=== PATIENT | female | born 1940 | race African-American/Black ===

== ENCOUNTER 2016-09-03 07:06 | Day surgery (SDC) | payer OTHER, BC ==
[2016-09-03 07:46] VITALS: BMI 29.2
[2016-09-03] MEDS ORDERED: LIDOCAINE HCL/PF 2% SDV 5ML VIAL ONE (07:55)
[2016-09-03] MEDS ORDERED: SUCCINYLCHOLINE CHLORIDE 200 MG/10 ML VIAL ONE (07:55)
[2016-09-03] MEDS ORDERED: PROPOFOL 20 ML ONE ×2 (07:55)
[2016-09-03] MEDS ORDERED: PHENYLEPHRINE HCL 10 MG/1 ML SINGLE DOSE VIAL ONE (07:56)
[2016-09-03] MEDS ORDERED: ePHEDrine SULFATE 50 MG/1 ML AMPULE ONE (07:56)
[2016-09-03 08:46] VITALS: TEMP 97.6
[2016-09-03 10:03] VITALS: BP 132/75; PULSE 57
--- NOTE | 2016-09-04 14:54 | PATH ---
Surgical Pathology Report Patient Name: DANIEL LIM [facility]. Rec. #: [id number] /Age/Gender: 1940 (Age: 76) / F Account: [id number] Location: [facility]-ENDOSCOPY Taken: 09/03/2016 Received: 09/03/2016 Reported: 09/04/2016 Physicians: Katherine Bobo M.D. Specimen(s) Received A: BX 2ND PORTION DUODENUM/BULB B: BX ANTRUM C: BX SCHATZKI'S RING D: BX MID ESOPHAGUS Clinical History Dysphagia, Schatzki's ring Hiatal hernia, GERD, Schatzki's ring Final Diagnosis A. DUODENUM, SECOND PORTION AND BULB, BIOPSY: DUODENAL MUCOSA WITH NO PATHOLOGIC CHANGES. NO HISTOLOGIC EVIDENCE OF GLUTEN SENSITIVE ENTEROPATHY (CELIAC SPRUE) IDENTIFIED. B. STOMACH, ANTRUM, BIOPSY: MILD CHRONIC GASTRITIS AND REACTIVE GASTROPATHY. IMMUNOSTAIN FOR H. PYLORI IS NEGATIVE. C. ESOPHAGUS, SCHATZKI'S RING, BIOPSY: SQUAMOUS EPITHELIUM WITH PAPILLOMATOSIS SUGGESTIVE OF REFLUX ESOPHAGITIS. NO INTESTINAL METAPLASIA IDENTIFIED (NO SIMON'S IDENTIFIED). D. MID ESOPHAGUS, BIOPSY: SQUAMOUS EPITHELIUM WITH PAPILLOMATOSIS SUGGESTIVE OF REFLUX ESOPHAGITIS. NO EOSINOPHILIC ESOPHAGITIS IDENTIFIED. Electronically Signed Vladimir Lewis M.D. Gross Description A. Received in formalin, labeled "biopsy second portion of duodenum/bulb" are 4 gonzalez, irregular portions of soft tissue ranging from 0.1-0.5 cm. in greatest dimension. The specimens are submitted in toto in one cassette. B. Received in formalin, labeled "biopsy antrum" are 3 gonzalez, irregular portions of soft tissue ranging from 0.3-0.6 cm. in greatest dimension. The specimens are submitted in toto in one cassette. C. Received in formalin, labeled "biopsy Schatzki's ring" are 5 gonzalez, irregular portions of soft tissue ranging from 0.3-0.4 cm. in greatest dimension. The specimens are submitted in toto in one cassette. D. Received in formalin, labeled "biopsy midesophagus" are 2 gonzalez, irregular portions of soft tissue measuring 0.5 and 0.6 cm. in greatest dimension. The specimens are submitted in toto in one cassette. 09/03/201609/03/2016
== END 2016-09-03 10:03 | disposition home or self-care (01) ==
LOC: JASU-ENDO 07:06
PROVIDERS: ATTEND Internal Medicine Gastroenterology
PROC: 0DB28ZX Excision of Middle Esophagus, Via Natural or Artificial Opening Endoscopic, Diagnostic (ICD-10-PCS; 2016-09-03)
PROC: 0D758ZZ Dilation of Esophagus, Via Natural or Artificial Opening Endoscopic (ICD-10-PCS; 2016-09-03)
PROC: 0DB38ZX Excision of Lower Esophagus, Via Natural or Artificial Opening Endoscopic, Diagnostic (ICD-10-PCS; principal; 2016-09-03 08:00)
DX: K22.2 Esophageal obstruction (principal); K44.9 Diaphragmatic hernia without obstruction or gangrene; K21.9 Gastro-esophageal reflux disease without esophagitis
CPT/HCPCS: 88305-TC; 88342-TC

== ENCOUNTER 2016-11-20 06:25 | Day surgery (SDC) | payer OTHER, BC ==
[2016-11-05 09:59] VITALS: BMI 28.1
[2016-11-20] MEDS ORDERED: LIDOCAINE HCL/PF 2% SDV 5ML VIAL ONE (07:35)
[2016-11-20] MEDS ORDERED: LEVOFLOXACIN 500 MG IVPB 100 ML IVPB ONE (07:35)
[2016-11-20] MEDS ORDERED: MIDAZOLAM HCL 2 MG/2 ML SINGLE DOSE VIAL ONE (07:36)
[2016-11-20] MEDS ORDERED: PROPOFOL 20 ML ONE (07:36)
[2016-11-20] MEDS ORDERED: LEVOFLOXACIN 500 MG PREMIX BAG IVPB ONE (07:50)
[2016-11-20] MEDS ORDERED: ACETAMINOPHEN 325 MG TABLET (FP) PO PRN (08:14)
[2016-11-20] MEDS ORDERED: oxyCODONE HCL 5 MG TABLET PO PRN ×2 (08:14→08:23)
[2016-11-20] MEDS ORDERED: ONDANSETRON 4 MG/2 ML VIAL IVPUSH PRN (08:14)
[2016-11-20] MEDS ORDERED: LACTATED RINGERS SOLUTION 1,000 ML IV SCH (08:15)
[2016-11-20] MEDS ORDERED: ACETAMINOPHEN 1000 MG/100 ML VIAL (NON FORMULARY) IVPB ONE (08:17)
--- NOTE | 2016-11-20 08:25 | OP ---
Operative Note - Note: Operative Date: 11/20/16 Pre-Operative Diagnosis: left kidney stone Operation: cysto/left ureteroscopy/laser litho/stent Findings: 1cm left kidney stone Post-Operative Diagnosis: Same as Pre-op Surgeon: Glenn Vela Anesthesia: General Estimated Blood Loss (mls): 0 Operative Report Dictated: Yes
[2016-11-20] MEDS ORDERED: ELECTROLYTE-148 SOLN 1,000 ML IV SCH (08:30)
[2016-11-20] MEDS ORDERED: ACETAMINOPHEN INJECTION 100 ML IVPB ONE (08:51)
[2016-11-20 09:41] VITALS: TEMP 97.7
[2016-11-20 12:15] VITALS: BP 131/71; PULSE 52
--- NOTE | 2016-11-20 17:09 | OP ---
DATE OF OPERATION: 11/20/2016 PREOPERATIVE DIAGNOSIS: A 1-cm left kidney stone. POSTOPERATIVE DIAGNOSIS: A 1-cm left kidney stone. PROCEDURE: Cystoscopy, ureteroscopy, laser lithotripsy, stone basket, and stent placement. SURGEON: Mary Lou Roberto MD INDICATION: Patient is a 76-year-old female who underwent ESWL for a 1-cm left kidney stone. However, the stone did not fragment, and so, she was taken to the OR for ureteroscopy and laser lithotripsy. Risks, benefits, and alternatives discussed, and the patient consented to the procedure. DESCRIPTION OF PROCEDURE: After informed consent was obtained, patient was taken to the OR, placed supine on the OR table. Cardiac monitoring administered. General anesthesia established. She was prepped and draped in the dorsal lithotomy position. She was given 500 mg of Levaquin preoperatively IV. At this point, the cystoscope was inserted into the urethra and into the bladder without difficulty. No tumors or stones were noted in the bladder. Attention was turned to the left ureteral orifice, intubated with ureteral catheter. Contrast injected for retrograde pyelogram. There was a 1-cm filling defect in the left kidney consistent with stone. The stone was radiolucent. Guidewire was advanced into the left renal pelvis. Over the guidewire, a dual-lumen catheter was advanced, and a second guidewire was advanced to the left renal pelvis. Over the second guidewire, a flexible ureteroscope was advanced into the kidney, and remaining guidewire was kept as a safety wire. The stone was seen in the renal pelvis. Using the -degree micron laser fiber, the stone was pulverized to fine dust in 1-2 mm fragments. One of these fragments was then removed with stone basket and sent to Pathology for analysis. Repeat ureteroscopy revealed no evidence of any large stone fragments and no evidence of any ureteral stone fragments. Ureteroscope was then removed, and a 7-Kinyarwanda 24-cm double-pigtail stent was then advanced in fashion. Fluoroscopy confirmed the stent to be in good position. Patient then awoke from anesthesia and transferred to recovery room in stable condition. There were no complications. Estimated blood loss was minimal. MARY LOU ROBERTO M.D. [id number]
--- NOTE | 2016-11-21 12:58 | PATH ---
Surgical Pathology Report Patient Name: DANIEL LIM [facility]. Rec. #: [id number] /Age/Gender: 1940 (Age: 76) / F Account: [id number] Location: [facility] SURGICAL Taken: 11/19/2016 Received: 11/20/2016 Reported: 11/21/2016 Physicians: Glenn Vela M.D. Specimen(s) Received LEFT KIDNEY STONE Clinical History Left kidney stone Final Diagnosis LEFT KIDNEY STONE, EXTRACTION: CALCULI SUBMITTED FOR CHEMICAL ANALYSIS (gross only). Electronically Signed Vladimir Lewis M.D. Gross Description Received fresh labeled "left kidney stone," is a 0.1 cm in greatest dimension gonzalez, irregular calculus which is sent for chemical analysis. DL/11/20/2016 saudi/11/20/2016
== END 2016-11-20 12:16 | disposition home or self-care (01) ==
LOC: JASU-SURG 06:25
PROVIDERS: ATTEND Urology
PROC: 0TF48ZZ Fragmentation in Left Kidney Pelvis, Via Natural or Artificial Opening Endoscopic (ICD-10-PCS; principal; 2016-11-20 07:30)
PROC: 0T778DZ Dilation of Left Ureter with Intraluminal Device, Via Natural or Artificial Opening Endoscopic (ICD-10-PCS; 2016-11-20 07:30)
DX: N20.0 Calculus of kidney (principal)
CPT/HCPCS: 76000-TC; 88300-TC; 94760

== ENCOUNTER 2016-11-30 16:32 | Inpatient (IN) | payer OTHER, BC ==
[2016-11-30] MEDS ORDERED: SODIUM CHLORIDE 0.9% 1000 ML INFUS.BAG IV STA (17:01)
[2016-11-30] MEDS ORDERED: ACETAMINOPHEN 500 MG TABLET (FP) PO ONE (17:24)
[2016-11-30 17:40] LABS: VENOUS BLOOD GAS HCO3 24.1 meq/L (19-25); VENOUS PH 7.48 (7.32-7.42)
[2016-11-30 17:43] LABS: BASOPHIL 0.1 % (0-2.0); EOSINOPHIL 0.1 % (0-4.5); MCH 31.6 pg (25.7-33.7); MCHC 33.3 g/dl (32.0-36.0); MEAN CELL VOLUME 94.9 fl (80-96); MEAN PLT VOLUME 8.2 fl (7.5-11.1); NEUTROPHILS 86.4 % (42.8-82.8); PLATELET COUNT 125 K/MM3 (134-434); RDW 14.3 % (11.6-15.6); WHITE BLOOD COUNT 13.3 K/mm3 (4.0-10.0)
[2016-11-30 17:45] LABS: URINE APPEARANCE CLOUDY; URINE BILIRUBIN NEGATIVE (NEGATIVE); URINE BLOOD 2+ (NEGATIVE); URINE COLOR YELLOW; URINE GLUCOSE (UA) NEGATIVE (NEGATIVE); URINE KETONE TRACE (NEGATIVE); URINE NITRITE NEGATIVE (NEGATIVE); URINE UROBILINOGEN NEGATIVE mg/dL (0.2-1.0)
--- NOTE | 2016-11-30 17:45 | PDOC ---
History of Present Illness <GracieJamar - Last Filed: 11/30/16 17:45> - General History Source: Patient Exam Limitations: No Limitations - History of Present Illness Initial Comments: 11/30/16 17:45 The patient is a 76 year old female with a significant past medical history of heart disease on lasix, CHF, acid reflux, kidney disease, glaucoma, who is sent in to the ED by Dr. Vela for ab ct. She complains of fevers and chills for [address] Vela on Thursday and was given Levofloxacin 500mg but with no alleviation. Patient states she had a stent removed on November 27 and has been sick since. Patient denies chest pain, SOB, chills, nausea, vomiting, diarrhea. Patient denies dysuria, frequency, hematuria. Patient is a current smoker. Patient denies drinking alcohol. Patient denies drug usage. <Олег Saunders - Last Filed: 11/30/16 18:08> <Ness Trent - Last Filed: 11/30/16 20:03> <Lakesha Garland - Last Filed: 12/01/16 05:27> - General Chief Complaint: SIRS, Suspected/Possible Stated Complaint: SENT BY PCP Time Seen by Provider: 11/30/16 16:51 Past History - Past Medical History Anemia: No Asthma: Yes Cancer: No Cardiac Disorders: Yes (CARDIAC CATH-NO STENT) CVA: No COPD: No CHF: No Dementia: No Diabetes: No GI Disorders: Yes (ACID REFLUX, H.PYLORI GASTRITIS, HIATAL HERNIA, SCHATZKI RING ) Disorders: Yes (KIDNEY STONES) HTN: Yes Hypercholesterolemia: No Liver Disease: No Seizures: No Thyroid Disease: No - Surgical History Abdominal Surgery: No Appendectomy: No Cardiac Surgery: No Cholecystectomy: No Lung Surgery: No Neurologic Surgery: No Orthopedic Surgery: Yes (ROTATOR CUFF SX LEFT) - Immunization History Immunization Up to Date: No - Psycho/Social/Smoking Cessation Hx Anxiety: No Suicidal Ideation: No Smoking Status: Yes Smoking History: Never smoked Have you smoked in the past 12 months: Yes Number of Cigarettes Smoked Daily: 0 If you are a former smoker, when did you quit?: 2015 'Breaking Loose' booklet given: 01/14/16 Hx Alcohol Use: Yes (SOCIAL) Drug/Substance Use Hx: No Substance Use Type: None Hx Substance Use Treatment: No <Jamar Bowman - Last Filed: 11/30/16 17:45> <Олег Saunders - Last Filed: 11/30/16 18:08> <Ness Trent - Last Filed: 11/30/16 20:03> <Lakesha Garland - Last Filed: 12/01/16 05:27> - Past Medical History Allergies/Adverse Reactions: Allergies Allergy/AdvReac Type Severity Reaction Status Date / Time Penicillins Allergy Mild Hives Verified 11/30/16 16:43 PLASTICS Allergy Mild Swelling Uncoded 11/30/16 16:43 Home Medications: Ambulatory Orders Albuterol Sulfate [Proair Hfa -] 1 - 2 inh PO PRN PRN 01/20/14 Amlodipine Besylate [Norvasc -] 2.5 mg PO DAILY 01/20/14 Hydrochlorothiazide [Hctz -] 12.5 mg PO DAILY 01/20/14 Omeprazole [Prilosec] 20 mg PO PRN PRN 01/20/14 Naproxen Sodium [Aleve] 220 mg PO PRN PRN 09/03/16 Vitamin B Complex 1 each PO DAILY 09/03/16 Acetaminophen [Tylenol -] 1,000 mg PO Q6H 11/05/16 Cholecalciferol (Vitamin D3) [Vitamin D3] 50,000 unit PO WEEKLY 11/05/16 Levofloxacin 750 mg PO DAILY 11/30/16 Review of Systems - Review of Systems Able to Perform ROS?: Yes Comments:: 11/30/16 17:46 GENERAL/CONSTITUTIONAL: + fever + chills. No weakness. HEAD, EYES, EARS, NOSE AND THROAT: No change in vision. No ear pain or discharge. No sore throat. CARDIOVASCULAR: No chest pain or shortness of breath. RESPIRATORY: No cough, wheezing, or hemoptysis. GASTROINTESTINAL: No nausea, vomiting, diarrhea or constipation. GENITOURINARY: No dysuria, frequency, or change in urination. MUSCULOSKELETAL: No joint or muscle swelling or pain. No neck or back pain. SKIN: No rash NEUROLOGIC: No headache, vertigo, loss of consciousness, or change in strength/ sensation. ENDOCRINE: No increased thirst. No abnormal weight change. HEMATOLOGIC/LYMPHATIC: No anemia, easy bleeding, or history of blood clots. ALLERGIC/IMMUNOLOGIC: No hives or skin allergy. <Олег Saunders - Last Filed: 11/30/16 18:08> *Physical Exam - Vital Signs Last Vital Signs Temp Pulse Resp BP Pulse Ox 102.3 F H 107 H 20 133/76 96 11/30/16 16:38 11/30/16 16:38 11/30/16 16:38 11/30/16 16:38 11/30/16 16:38 <Jamar Bowman - Last Filed: 11/30/16 17:45> - Vital Signs Last Vital Signs Temp Pulse Resp BP Pulse Ox 102.3 F H 107 H 20 133/76 96 11/30/16 16:38 11/30/16 16:38 11/30/16 16:38 11/30/16 16:38 11/30/16 16:38 - Physical Exam Comments: 11/30/16 17:46 GENERAL: Awake, alert, and fully oriented, in no acute distress HEAD: No signs of trauma EYES: PERRLA, EOMI, sclera anicteric, conjunctiva clear ENT: Auricles normal inspection, hearing grossly normal, nares patent, oropharynx clear without exudates. Moist mucosa NECK: Normal ROM, supple, no lymphadenopathy, JVD, or masses LUNGS: Breath sounds equal, clear to auscultation bilaterally. No wheezes, and no crackles HEART: Regular rate and rhythm, normal S1 and S2, no murmurs, rubs or gallops ABDOMEN: Soft, nontender, normoactive bowel sounds. No guarding, no rebound. No masses EXTREMITIES: Normal range of motion, no edema. No clubbing or cyanosis. No cords, erythema, or tenderness NEUROLOGICAL: Cranial nerves II through XII grossly intact. Normal speech, normal gait SKIN: Warm, Dry, normal turgor, no rashes or lesions noted. <Олег Saunders - Last Filed: 11/30/16 18:08> - Vital Signs Last Vital Signs Temp Pulse Resp BP Pulse Ox 99.6 F 68 16 132/76 98 11/30/16 19:05 11/30/16 19:05 11/30/16 19:05 11/30/16 19:05 11/30/16 19:05 <Ness Trent - Last Filed: 11/30/16 20:03> - Vital Signs Last Vital Signs Temp Pulse Resp BP Pulse Ox 99.6 F 68 16 132/76 98 11/30/16 19:05 11/30/16 19:05 11/30/16 19:05 11/30/16 19:05 11/30/16 19:05 <GarlandLakesha - Last Filed: 12/01/16 05:27> Heart Score/ECG Review - ECG Intrepretation Comment:: 11/30/16 18:08 normal sinus rhythm, [address] and T wave abnormality. Abnormal ECG. <Олег Saunders - Last Filed: 11/30/16 18:08> ED Treatment Course - LABORATORY CBC & Chemistry Diagram: 11/30/16 17:02 11/30/16 17:02 - ADDITIONAL ORDERS Additional order review: Laboratory Results 11/30/16 17:35 VBG pH 7.48 H POC VBG pCO2 33.0 L POC VBG pO2 61.5 H Mixed VBG HCO3 24.1 - RADIOLOGY Radiology Studies Ordered: Category Date Time Status ABDOMEN & PELVIS CT W/O CONTR [CT] Stat CT Scan 11/30/16 17:32 Ordered CHEST X-RAY PORTABLE* [RAD] Stat Radiology 11/30/16 17:01 Ordered - Medications Given in the ED: ED Medications Discontinued Medications Generic Name Dose Route Start Last Admin Trade Name Freq PRN Reason Stop Dose Admin Acetaminophen 1,000 mg 11/30/16 17:24 11/30/16 17:44 Tylenol - PO 11/30/16 17:25 1,000 mg ONCE ONE Administration Sodium Chloride 1,379 ml 11/30/16 17:01 11/30/16 17:44 Normal Saline - IV 11/30/16 17:02 1,379 ml ONCE STA Administration <Gabrin,Jamar - Last Filed: 11/30/16 17:45> - LABORATORY CBC & Chemistry Diagram: 11/30/16 17:02 11/30/16 17:02 - ADDITIONAL ORDERS Additional order review: Laboratory Results 11/30/16 17:35 VBG pH 7.48 H POC VBG pCO2 33.0 L POC VBG pO2 61.5 H Mixed VBG HCO3 24.1 - Medications Given in the ED: ED Medications Discontinued Medications Generic Name Dose Route Start Last Admin Trade Name Freq PRN Reason Stop Dose Admin Acetaminophen 1,000 mg 11/30/16 17:24 11/30/16 17:44 Tylenol - PO 11/30/16 17:25 1,000 mg ONCE ONE Administration Sodium Chloride 1,379 ml 11/30/16 17:01 11/30/16 17:44 Normal Saline - IV 11/30/16 17:02 1,379 ml ONCE STA Administration <Олег Saunders - Last Filed: 11/30/16 18:08> - LABORATORY CBC & Chemistry Diagram: 11/30/16 17:02 11/30/16 17:02 - ADDITIONAL ORDERS Additional order review: Laboratory Results 11/30/16 11/30/16 11/30/16 17:35 17:02 17:02 INR PTT (Actin FS) VBG pH 7.48 H POC VBG pCO2 33.0 L POC VBG pO2 61.5 H Mixed VBG HCO3 24.1 Sodium Potassium Chloride Carbon Dioxide Anion Gap BUN Creatinine Creat Clearance w eGFR Random Glucose Lactic Acid 1.2 Calcium Total Bilirubin AST ALT Alkaline Phosphatase Creatine Kinase Troponin I Total Protein Albumin Urine Color Urine Appearance Urine pH Urine Protein Urine Glucose (UA) Urine Ketones Urine Blood Urine Nitrite Urine Bilirubin Urine Urobilinogen Ur Leukocyte Esterase Urine RBC Urine WBC Ur Epithelial Cells Urine Bacteria Granular Casts Urine Mucus Blood Type A POSITIVE Antibody Screen Negative 11/30/16 11/30/16 11/30/16 17:02 17:02 17:02 INR 1.53 H D PTT (Actin FS) 28.4 VBG pH POC VBG pCO2 POC VBG pO2 Mixed VBG HCO3 Sodium 137 Potassium 3.5 D Chloride 102 Carbon Dioxide 24 Anion Gap 11 BUN 15 Creatinine 1.1 H D Creat Clearance w eGFR 48.29 Random Glucose 115 H D Lactic Acid Calcium 8.4 L Total Bilirubin 0.9 D AST 26 D ALT 20 Alkaline Phosphatase 86 Creatine Kinase 85 Troponin I < 0.02 Total Protein 7.1 Albumin 2.7 L Urine Color Yellow Urine Appearance Cloudy Urine pH 5.0 Urine Protein 2+ H Urine Glucose (UA) Negative Urine Ketones Trace H Urine Blood 2+ H Urine Nitrite Negative Urine Bilirubin Negative Urine Urobilinogen Negative Ur Leukocyte Esterase 3+ H Urine RBC 7 Urine WBC 328 Ur Epithelial Cells Rare Urine Bacteria Many Granular Casts 14 Urine Mucus Rare Blood Type Antibody Screen 11/30/16 17:02 RBC 3.65 MCV 94.9 MCHC 33.3 RDW 14.3 MPV 8.2 D Neutrophils % 86.4 H D Lymphocytes % 4.1 L D Monocytes % 9.3 Eosinophils % 0.1 D Basophils % 0.1 - RADIOLOGY Radiograph Interpretation: IMPRESSION: Collection of nonobstructing stones within the lower pole of the left kidney. Perinephric soft tissue stranding suggesting left pyelonephritis. Diffuse colonic diverticulosis with early focal diverticulitis of the splenic flexure suspected if appropriate clinically. - Medications Given in the ED: ED Medications Discontinued Medications Generic Name Dose Route Start Last Admin Trade Name Peterq PRN Reason Stop Dose Admin Acetaminophen 1,000 mg 11/30/16 17:24 11/30/16 17:44 Tylenol - PO 11/30/16 17:25 1,000 mg ONCE ONE Administration Sodium Chloride 1,379 ml 11/30/16 17:01 11/30/16 17:44 Normal Saline - IV 11/30/16 17:02 1,379 ml ONCE STA Administration <Ness Trent - Last Filed: 11/30/16 20:03> - LABORATORY CBC & Chemistry Diagram: 11/30/16 17:02 11/30/16 17:02 - ADDITIONAL ORDERS Additional order review: Laboratory Results 11/30/16 11/30/16 11/30/16 17:35 17:02 17:02 INR PTT (Actin FS) VBG pH 7.48 H POC VBG pCO2 33.0 L POC VBG pO2 61.5 H Mixed VBG HCO3 24.1 Sodium Potassium Chloride Carbon Dioxide Anion Gap BUN Creatinine Creat Clearance w eGFR Random Glucose Lactic Acid 1.2 Calcium Total Bilirubin AST ALT Alkaline Phosphatase Creatine Kinase Troponin I Total Protein Albumin Urine Color Urine Appearance Urine pH Urine Protein Urine Glucose (UA) Urine Ketones Urine Blood Urine Nitrite Urine Bilirubin Urine Urobilinogen Ur Leukocyte Esterase Urine RBC Urine WBC Ur Epithelial Cells Urine Bacteria Granular Casts Urine Mucus Blood Type A POSITIVE Antibody Screen Negative 11/30/16 11/30/16 11/30/16 17:02 17:02 17:02 INR 1.53 H D PTT (Actin FS) 28.4 VBG pH POC VBG pCO2 POC VBG pO2 Mixed VBG HCO3 Sodium 137 Potassium 3.5 D Chloride 102 Carbon Dioxide 24 Anion Gap 11 BUN 15 Creatinine 1.1 H D Creat Clearance w eGFR 48.29 Random Glucose 115 H D Lactic Acid Calcium 8.4 L Total Bilirubin 0.9 D AST 26 D ALT 20 Alkaline Phosphatase 86 Creatine Kinase 85 Troponin I < 0.02 Total Protein 7.1 Albumin 2.7 L Urine Color Yellow Urine Appearance Cloudy Urine pH 5.0 Urine Protein 2+ H Urine Glucose (UA) Negative Urine Ketones Trace H Urine Blood 2+ H Urine Nitrite Negative Urine Bilirubin Negative Urine Urobilinogen Negative Ur Leukocyte Esterase 3+ H Urine RBC 7 Urine WBC 328 Ur Epithelial Cells Rare Urine Bacteria Many Granular Casts 14 Urine Mucus Rare Blood Type Antibody Screen 11/30/16 17:02 RBC 3.65 MCV 94.9 MCHC 33.3 RDW 14.3 MPV 8.2 D Neutrophils % 86.4 H D Lymphocytes % 4.1 L D Monocytes % 9.3 Eosinophils % 0.1 D Basophils % 0.1 - Medications Given in the ED: ED Medications Discontinued Medications Generic Name Dose Route Start Last Admin Trade Name Freq PRN Reason Stop Dose Admin Acetaminophen 1,000 mg 11/30/16 17:24 11/30/16 17:44 Tylenol - PO 11/30/16 17:25 1,000 mg ONCE ONE Administration Sodium Chloride 1,379 ml 11/30/16 17:01 11/30/16 17:44 Normal Saline - IV 11/30/16 17:02 1,379 ml ONCE STA Administration <Lakesha Garland - Last Filed: 12/01/16 05:27> Medical Decision Making - Medical Decision Making Paged Dr. Baeza @ 19:45. Awaiting call back. Paged Dr. Baeza a second time @ 20:04. Awaiting call back. <Ness Trent - Last Filed: 11/30/16 20:03> - Medical Decision Making 11/30/16 19:30 Patient Name: Mahi Leavitt THIS IS A PRELIMINARY REPORT FROM [facility] DATE OF SERVICE: 2016-11-30 18:14:37.0 IMAGES: [id number] EXAM: CT ABDOMEN AND PELVIS WITHOUT CONTRAST REASON FOR EXAM: Abdominal pain lithotripsy last week COMPARISON: None FINDINGS: Lower lung gibson are clear. There are no gallstones identified. Liver, pancreas, spleen and adrenal glands are grossly unremarkable given the limitation of this non contrast exam. Perinephric soft tissue stranding surrounds the left kidney. Additionally, there is soft tissue stranding that extends to the splenic flexure where diffuse diverticula present. Superimposed early diverticulitis within this area cannot be excluded. There is a nonobstructing collection of stones in the lower pole of the left kidney measuring 13 x 6 x 10 mm. Mild left hydroureter without obstructing ureteral stone. Left kidney is unremarkable. Abdominal aorta without AAA. There is no retroperitoneal hemorrhage The appendix is normal. Evaluation of the GI tract is limited without oral contrast. Diffuse colonic diverticulosis. No evidence of bowel obstruction, ascites, abscess, free air Bladder unremarkable without stones. Lumbar spine and bony pelvis are intact. IMPRESSION: Collection of nonobstructing stones within the lower pole of the left kidney. Perinephric soft tissue stranding suggesting left pyelonephritis. Diffuse colonic diverticulosis with early focal diverticulitis of the splenic flexure suspected if appropriate clinically. . THIS DOCUMENT HAS BEEN ELECTRONICALLY SIGNED 12/01/16 05:25 Pt has UTI; possible pyelonephritis; she failed outpatient levaquin. Pt will be admitted to her PMD [facility]. Dr Baeza is aware of the patient. <Lakesha Garland - Last Filed: 12/01/16 05:27> *DC/Admit/Observation/Transfer - Attestations Physician Attestion: 11/30/16 17:45 I, Dr. Jamar Bowman, attest that this document has been prepared under my direction and personally reviewed by me in its entirety. I further attest, that it accurately reflects all work, treatment, procedures and medical decision -making performed by me. <Jamar Bowman - Last Filed: 11/30/16 17:45> - Attestations Scribe Attestion: 11/30/16 17:47 Documentation prepared by Олег Saunders, acting as medical auditor for Jamar Bowman MD/. <Олег Saunders - Last Filed: 11/30/16 18:08> <Ness Trent - Last Filed: 11/30/16 20:03> - Discharge Dispostion Admit: Yes <Lakesha Garland - Last Filed: 12/01/16 05:27> Diagnosis at time of Disposition: Sepsis - Referrals
[2016-11-30] MEDS ORDERED: ACETAMINOPHEN 325 MG TABLET (FP) ONE (17:46)
[2016-11-30 17:47] LABS: URINE LEUK ESTERASE 3+ (NEGATIVE); URINE PROTEIN 2+ (NEGATIVE)
[2016-11-30 17:49] LABS: GRANULAR CASTS 14 /lpf; URINE BACTERIA MANY /hpf (NONE SEEN); URINE MUCUS RARE; URINE RBC 7 /hpf (0-3); URINE WBC 328 /hpf (3-5)
[2016-11-30 17:56] LABS: INR 1.53 (0.82-1.09)
[2016-11-30 17:59] LABS: ACTIVATED PTT 28.4 SECONDS (26.9-34.4)
[2016-11-30 18:13] LABS: ALBUMIN 2.7 g/dl (3.4-5.0); ANION GAP 11 (8-16); BILIRUBIN,TOTAL 0.9 mg/dL (0.2-1.0); CALCIUM 8.4 mg/dL (8.5-10.1); CO2 24 mmol/L (21-32); CREATININE 1.1 mg/dL (0.55-1.02); GLUCOSE,RANDOM 115 mg/dL (74-106); SGOT/AST 26 U/L (15-37); TOT PROT 7.1 g/dl (6.4-8.2)
[2016-11-30 18:20] LABS: ALK PHOS 86 U/L (45-117); CPK 85 IU/L (26-192); SGPT/ALT 20 U/L (12-78); TROPONIN I < 0.02 ng/ml (0.00-0.05)
[2016-11-30] MEDS ORDERED: MEROPENEM 1 MG in DEXTROSE 5%-WATER - 100 ML IVPB ONE (18:57)
[2016-11-30] MEDS ORDERED: IMIPENEM/CILASTATIN SODIUM 500 MG in SODIUM CHLORIDE 100 ML IVPB SCH (20:15)
[2016-11-30] MEDS: MEROPENEM 1 GM in DEXTROSE 5%-WATER - 100 ML IVPB SCH (20:31)
[2016-11-30 23:54] VITALS: BMI 27.8
[2016-12-01] MEDS: ACETAMINOPHEN 325 MG TABLET (FP) PO PRN ×2 (02:36→14:58)
[2016-12-01] MEDS: MEROPENEM 1 GM in DEXTROSE 5%-WATER - 100 ML IVPB SCH ×2 (02:36→09:55)
--- NOTE | 2016-12-01 07:06 | CON.GU ---
Consult - History of Present Illness History of Present Illness: 76 yo female s/p left ureteroscopy/laser lithotripsy of a 1cm partially obstructing left kidney stone 2 weeks ago. Last week had her stent removed. Has been experiencing frequency and dysuria since and yesterday presented to ER with fever and chills. Nonocontrast CT showed left lower pole stone ( preesxisting) but no evidence of any residual fragments of the treated left kidney stone. Mild fullness of collecting system - Alcohol/Substance Use Hx Alcohol Use: Yes (SOCIAL) - Smoking History Smoking history: Former smoker Have you smoked in the past 12 months: No Aproximately how many cigarettes per day: 0 If you are a former smoker, when did you quit?: 2015 Home Medications - Allergies Allergies/Adverse Reactions: Allergies Allergy/AdvReac Type Severity Reaction Status Date / Time Penicillins Allergy Mild Hives Verified 11/30/16 16:43 PLASTICS Allergy Mild Swelling Uncoded 11/30/16 16:43 - Home Medications Home Medications: Ambulatory Orders Albuterol Sulfate [Proair Hfa -] 1 - 2 inh PO PRN PRN 01/20/14 Amlodipine Besylate [Norvasc -] 2.5 mg PO DAILY 01/20/14 Hydrochlorothiazide [Hctz -] 12.5 mg PO DAILY 01/20/14 Omeprazole [Prilosec] 20 mg PO PRN PRN 01/20/14 Naproxen Sodium [Aleve] 220 mg PO PRN PRN 09/03/16 Vitamin B Complex 1 each PO DAILY 09/03/16 Acetaminophen [Tylenol -] 1,000 mg PO Q6H 11/05/16 Cholecalciferol (Vitamin D3) [Vitamin D3] 50,000 unit PO WEEKLY 11/05/16 Levofloxacin 750 mg PO DAILY 11/30/16 Review of Systems - Review of Systems Constitutional: reports: Chills, Fever Genitourinary: reports: Dysuria Physical Exam- Vital Signs: Vital Signs Temperature 98.1 F 12/01/16 06:39 Pulse Rate 75 12/01/16 06:39 Respiratory Rate 20 12/01/16 06:39 Blood Pressure 126/76 12/01/16 06:39 O2 Sat by Pulse Oximetry (%) 98 11/30/16 23:27 Renal/: Yes: WNL, Anuria, Bladder Distention, Crowell Present, Hematuria, Menses Present, Oliguria, Polyuria, , Scrotal Edema, Urethral Discharge , Vaginal Bleeding, Vaginal Discharge, Other. No: CVA Tenderness - Left, CVA Tenderness - Right, Incontinence Imaging - Results Cat Scan: Image Reviewed Problem List - Problems (1) UTI (urinary tract infection) Assessment/Plan: symptoms likely from UTI. Abx as per ID while awaiting cultures. No evidence of obstructive uropathy Code(s): N39.0 - URINARY TRACT INFECTION, SITE NOT SPECIFIED
--- NOTE | 2016-12-01 09:50 | EKG ---
Test Reason : Blood Pressure : / mmHG Vent. Rate : 097 BPM Atrial Rate : 097 BPM P-R Int : 140 ms QRS Dur : 080 ms QT Int : 324 ms P-R-T Axes : 053 010 008 degrees QTc Int : 411 ms NORMAL SINUS RHYTHM NORMAL ECG WHEN COMPARED WITH ECG OF 25-JUL-2011 20:55, T WAVE VARIATION Confirmed by TABBY BROWNE MD ([id number]) on 12/01/2016 9:50:24 AM Referred By: Confirmed By:TABBY BROWNE MD
[2016-12-01] MEDS: amLODIPine BESYLATE 2.5 MG TABLET (FP) PO SCH (09:55)
[2016-12-01] MEDS: PANTOPRAZOLE 20 MG TABLET (FP) PO SCH (09:55)
[2016-12-01] MEDS: HYDROCHLOROTHIAZIDE 12.5 MG CAPSULE (FP) PO SCH (09:56)
--- NOTE | 2016-12-01 14:07 | HP ---
Admitting History and Physical - Primary Care Physician PCP: Jean Good - Admission Chief Complaint: I felt sick History of Present Illness: Ms Apollo Leavitt is a very pleasant 76 year old female who comes in with chills after stent removal. She says she was recently found to have a stone and underwent lithotripsy with stent placement. She tolerated this well and was without symptoms. On she presented to urology to have the stent removed. After removal she started having pain in her back. She also developed chills with rigors. She was placed on oral antibiotics but her symptoms did not improve. She says she also had nausea without vomiting associated with it. The rigors became so severe she came into the hospital. She denies lightheadedness, dizziness, passing out, chest pain, shortness of breath, abdominal pain, diarrhea, constipation, pain on urination, or swelling. She says at one point she had difficulty urinating but that has resolved. Currently her symptoms are controlled with tylenol. History Source: Patient Limitations to Obtaining History: No Limitations - Past Medical History Cardiovascular: Yes: HTN - Past Surgical History Past Surgical History: Yes: Hysterectomy - Smoking History Smoking history: Former smoker Have you smoked in the past 12 months: No Aproximately how many cigarettes per day: 0 If you are a former smoker, when did you quit?: 2016 - Alcohol/Substance Use Hx Alcohol Use: Yes (SOCIAL) History of Substance Use: reports: None - Social History Usual Living Arrangement: Yes: Alone ADL: Independent History of Recent Travel: No Home Medications - Allergies Allergies/Adverse Reactions: Allergies Allergy/AdvReac Type Severity Reaction Status Date / Time Penicillins Allergy Mild Hives Verified 11/30/16 16:43 PLASTICS Allergy Mild Swelling Uncoded 11/30/16 16:43 - Home Medications Home Medications: Ambulatory Orders Albuterol Sulfate [Proair Hfa -] 1 - 2 inh PO PRN PRN 01/20/14 Amlodipine Besylate [Norvasc -] 2.5 mg PO DAILY 01/20/14 Hydrochlorothiazide [Hctz -] 12.5 mg PO DAILY 01/20/14 Omeprazole [Prilosec] 20 mg PO PRN PRN 01/20/14 Naproxen Sodium [Aleve] 220 mg PO PRN PRN 09/03/16 Vitamin B Complex 1 each PO DAILY 09/03/16 Acetaminophen [Tylenol -] 1,000 mg PO Q6H 11/05/16 Cholecalciferol (Vitamin D3) [Vitamin D3] 50,000 unit PO WEEKLY 11/05/16 Levofloxacin 750 mg PO DAILY 11/30/16 Family Disease History - Family Disease History Family Disease History: Other: Sister (twin, healthy) Review of Systems Findings/Remarks: full review of systems obtained, as per HPI and otherwise negative Physical Examination Vital Signs: Vital Signs Temperature 99.2 F 12/01/16 09:00 Pulse Rate 91 H 12/01/16 09:00 Respiratory Rate 18 12/01/16 09:00 Blood Pressure 104/80 12/01/16 09:00 O2 Sat by Pulse Oximetry (%) 98 12/01/16 09:00 Constitutional: Yes: Well Nourished, No Distress, Calm Eyes: Yes: Conjunctiva Clear, EOM Intact, PERRL HENT: Yes: Atraumatic, Normocephalic Cardiovascular: Yes: Regular Rate and Rhythm. No: Gallop, Murmur, Rub Respiratory: Yes: Regular, CTA Bilaterally. No: Rales, Rhonchi, Wheezes Gastrointestinal: Yes: Normal Bowel Sounds, Soft. No: Distention, Tenderness Extremities: Yes: WNL Edema: No Labs: Laboratory Results - last 24 hr 11/30/16 11/30/16 11/30/16 17:02 17:02 17:02 WBC 13.3 H D RBC 3.65 Hgb 11.6 Hct 34.7 MCV 94.9 MCH 31.6 MCHC 33.3 RDW 14.3 Plt Count 125 L D MPV 8.2 D Neutrophils % 86.4 H D Lymphocytes % 4.1 L D Monocytes % 9.3 Eosinophils % 0.1 D Basophils % 0.1 INR 1.53 H D PTT (Actin FS) 28.4 VBG pH POC VBG pCO2 POC VBG pO2 Mixed VBG HCO3 Sodium Potassium Chloride Carbon Dioxide Anion Gap BUN Creatinine Creat Clearance w eGFR Random Glucose Lactic Acid Calcium Total Bilirubin AST ALT Alkaline Phosphatase Creatine Kinase Troponin I Total Protein Albumin Urine Color Yellow Urine Appearance Cloudy Urine pH 5.0 Ur Specific [place] 1.020 Urine Protein 2+ H Urine Glucose (UA) Negative Urine Ketones Trace H Urine Blood 2+ H Urine Nitrite Negative Urine Bilirubin Negative Urine Urobilinogen Negative Ur Leukocyte Esterase 3+ H Urine RBC 7 Urine WBC 328 Ur Epithelial Cells Rare Urine Bacteria Many Granular Casts 14 Urine Mucus Rare Blood Type Antibody Screen Spec Expiration Date 11/30/16 11/30/16 11/30/16 17:02 17:02 17:02 WBC RBC Hgb Hct MCV MCH MCHC RDW Plt Count MPV Neutrophils % Lymphocytes % Monocytes % Eosinophils % Basophils % INR PTT (Actin FS) VBG pH POC VBG pCO2 POC VBG pO2 Mixed VBG HCO3 Sodium 137 Potassium 3.5 D Chloride 102 Carbon Dioxide 24 Anion Gap 11 BUN 15 Creatinine 1.1 H D Creat Clearance w eGFR 48.29 Random Glucose 115 H D Lactic Acid 1.2 Calcium 8.4 L Total Bilirubin 0.9 D AST 26 D ALT 20 Alkaline Phosphatase 86 Creatine Kinase 85 Troponin I < 0.02 Total Protein 7.1 Albumin 2.7 L Urine Color Urine Appearance Urine pH Ur Specific [place] Urine Protein Urine Glucose (UA) Urine Ketones Urine Blood Urine Nitrite Urine Bilirubin Urine Urobilinogen Ur Leukocyte Esterase Urine RBC Urine WBC Ur Epithelial Cells Urine Bacteria Granular Casts Urine Mucus Blood Type A POSITIVE Antibody Screen Negative Spec Expiration Date 11/30/16 11/30/16 11/30/16 17:35 19:11 20:18 WBC RBC Hgb Hct MCV MCH MCHC RDW Plt Count MPV Neutrophils % Lymphocytes % Monocytes % Eosinophils % Basophils % INR PTT (Actin FS) VBG pH 7.48 H POC VBG pCO2 33.0 L POC VBG pO2 61.5 H Mixed VBG HCO3 24.1 Sodium Potassium Chloride Carbon Dioxide Anion Gap BUN Creatinine Creat Clearance w eGFR Random Glucose Lactic Acid Calcium Total Bilirubin AST ALT Alkaline Phosphatase Creatine Kinase Troponin I Total Protein Albumin Urine Color Urine Appearance Urine pH Ur Specific [place] Urine Protein Urine Glucose (UA) Urine Ketones Urine Blood Urine Nitrite Urine Bilirubin Urine Urobilinogen Ur Leukocyte Esterase Urine RBC Urine WBC Ur Epithelial Cells Urine Bacteria Granular Casts Urine Mucus Blood Type A POSITIVE Cancelled Antibody Screen Cancelled Spec Expiration Date Cancelled Imaging - Results Cat Scan: Report Reviewed Problem List - Problems (1) UTI (urinary tract infection) Assessment/Plan: -patient presents with UTI with sepsis -failed outpatient therapy -admit to the hospital -started on merrem -ID consulted -follow up culture results Code(s): N39.0 - URINARY TRACT INFECTION, SITE NOT SPECIFIED Qualifiers: Urinary tract infection type: acute cystitis Hematuria presence: without hematuria Qualified Code(s): N30.00 - Acute cystitis without hematuria (2) Sepsis Assessment/Plan: -as evidenced by fevers, leukocytosis, and positive blood cultures -continue antibiotics and hydration Code(s): A41.9 - SEPSIS, UNSPECIFIED ORGANISM (3) HTN (hypertension) Assessment/Plan: -continue HCTZ and norvasc -monitor Code(s): I10 - ESSENTIAL (PRIMARY) HYPERTENSION
--- NOTE | 2016-12-01 14:50 | PN ---
Progress Note (short form) - Note Progress Note: ID Consult dictated Gram Negative bacteremia/ sepsis L pyelonephritis Nephrolithiasis s/p laser lithotripsy/ ureteral stent/ stent removal Thrombocytopenia, secondary to sepsis PCN allergy Await identification of blood isolate Continue empiric meropenem
[2016-12-01] MEDS: MEROPENEM 500 MG in DEXTROSE 5%-WATER - 100 ML IVPB SCH ×2 (16:58→23:01)
[2016-12-01] MEDS ORDERED: PT OWN MED DRAWER 7, Y5N ONE ×2 (17:19→22:33)
[2016-12-01] MEDS ORDERED: MEROPENEM 500 MG VIAL (RESTRICTED TO ID) IVPB SCH (18:00)
--- NOTE | 2016-12-01 19:47 | CONS ---
DATE OF CONSULTATION: HISTORY: The patient is a 76-year-old female with recent onset of nephrolithiasis evaluated for sepsis. The patient underwent laser lithotripsy with insertion of left ureteral stent on or about November 20, 2016. She reports doing relatively well until November. She denies begun to experience dysuria, urinary frequency, and urgency. The ureteral stent was removed on November 27, 2016. After the removal of the stent, she began to experience recurrent fevers, chills, drenching sweats, increased dysuria, frequency, and urgency. She had been on Levaquin for approximately 1 week. Despite the antibiotic therapy, she continued to have symptoms. She was referred to the emergency room where she was admitted. A CAT scan of the abdomen and pelvis showed a nonobstructing left nephrolith with left perinephric stranding suggestive of acute pyelonephritis. Blood cultures are now growing gram-negative rods in 1 aerobic bottle. She was empirically treated with Meropenem. She continues to experience urinary urgency, frequency, and dysuria. She denies any flank pain. Positive nausea. No vomiting. PAST MEDICAL HISTORY: Positive for nephrolithiasis, coronary artery disease, congestive heart failure, gastroesophageal reflux, glaucoma. PAST SURGICAL HISTORY: Status post rotator cuff surgery, hysterectomy. ALLERGIES: PENICILLIN (hives). The patient reports having an allergic reaction in childhood. She was whether she had experienced laryngeal edema at that time. MEDICATIONS: Include ProAir, Norvasc, hydrochlorothiazide, Prilosec, Aleve, Tylenol, Levaquin. SOCIAL HISTORY: Positive for tobacco. Occasional ETOH. She is retired from the [employer]. SYSTEMS REVIEW: Neurologic: No loss of consciousness, seizure activity, focal weakness. Cardiac: Negative chest pain or palpitations. Respiratory: Negative cough or sputum production. Gastrointestinal: Positive for reflux and nausea. Genitourinary: As per HPI. LABORATORY DATA: White count 13.3, hematocrit 34.7, platelet count 125, BUN 15, creatinine 1.1. Urinalysis: 328 white cells, 7 red cells. PHYSICAL EXAMINATION: General: She is awake and alert. She is in no acute distress. Vital Signs: Temperature 99.2, T-max 102.3, blood pressure 104/80, pulse 81 and regular, respirations 18 per minute. HEENT: Sclerae anicteric. Heart: Sounds S1, S2. Lungs: Clear. Abdomen: Soft. Mild suprapubic tenderness. No flank tenderness. Extremities: Negative for edema. IMPRESSION: 1. Gram-negative bacteremia, sepsis. 2. Urinary tract infection, sepsis secondary to urinary tract infection. 3. Pyelonephritis. 4. Nephrolithiasis status post lithotripsy, ureteral stent, and stent removal. 5. PENICILLIN allergy. 6. Thrombocytopenia possibly secondary to sepsis. Pending identification of gram-negative in the blood, we will continue Meropenem in this PENICILLIN allergic patient. Continue IV fluid hydration. Further recommendations pending culture results. We will follow. Thank you for the kind referral. EPIFANIO RIOS M.D. [id number]
[2016-12-02] MEDS: ACETAMINOPHEN 325 MG TABLET (FP) PO PRN (01:47)
[2016-12-02] MEDS: MEROPENEM 500 MG in DEXTROSE 5%-WATER - 100 ML IVPB SCH ×2 (06:48→18:06)
[2016-12-02 08:14] LABS: BASOPHIL 0.5 % (0-2.0); EOSINOPHIL 1.8 % (0-4.5); MCH 32.7 pg (25.7-33.7); MCHC 34.2 g/dl (32.0-36.0); MEAN CELL VOLUME 95.6 fl (80-96); MEAN PLT VOLUME 8.4 fl (7.5-11.1); NEUTROPHILS 66.7 % (42.8-82.8); PLATELET COUNT 125 K/MM3 (134-434); RDW 14.6 % (11.6-15.6); WHITE BLOOD COUNT 8.7 K/mm3 (4.0-10.0)
--- NOTE | 2016-12-02 09:11 | PN ---
Progress Note (short form) - Note Progress Note: fever curve decreasing no dysuria, no flank pain WBC now normal cultures pending Problem List - Problems (1) UTI (urinary tract infection) Code(s): N39.0 - URINARY TRACT INFECTION, SITE NOT SPECIFIED Qualifiers: Urinary tract infection type: acute cystitis Hematuria presence: without hematuria Qualified Code(s): N30.00 - Acute cystitis without hematuria
[2016-12-02 10:39] LABS: ANION GAP 10 (8-16); CO2 27 mmol/L (21-32); GLUCOSE,RANDOM 113 mg/dL (74-106); MAGNESIUM 2.2 mg/dL (1.8-2.4)
[2016-12-02 10:40] LABS: CREATININE 1.1 mg/dL (0.55-1.02); PHOSPHOROUS 2.7 mg/dL (2.5-4.9)
[2016-12-02] MEDS: ENOXAPARIN NA (PORCINE) 40 MG/0.4 ML DISP.SYRIN SQ SCH (11:35)
[2016-12-02] MEDS: amLODIPine BESYLATE 2.5 MG TABLET (FP) PO SCH (11:36)
[2016-12-02] MEDS: PANTOPRAZOLE 20 MG TABLET (FP) PO SCH (11:36)
[2016-12-02] MEDS: HYDROCHLOROTHIAZIDE 12.5 MG CAPSULE (FP) PO SCH (11:38)
--- NOTE | 2016-12-02 11:38 | PN ---
Progress Note, Physician History of Present Illness: Reports less urinary frequency No dysuria/ hematuria No flank pain Temps down- low grade WBC improved - WNL Plt count stable Tolerated carbapenem - Current Medication List Current Medications: Active Medications Acetaminophen (Tylenol -) 650 mg PO Q4H PRN PRN Reason: FEVER OR PAIN Last Admin: 12/02/16 01:47 Dose: 650 mg Amlodipine Besylate (Norvasc -) 2.5 mg PO DAILY [facility] Last Admin: 12/01/16 09:55 Dose: 2.5 mg Enoxaparin Sodium (Lovenox -) 40 mg SQ DAILY [facility] Hydrochlorothiazide (Hctz -) 12.5 mg PO DAILY [facility] Last Admin: 12/01/16 09:56 Dose: 12.5 mg Meropenem 500 mg/ Dextrose 100 mls @ 200 mls/hr IVPB Q8H [facility] Pantoprazole Sodium (Protonix -) 20 mg PO DAILY [facility] Last Admin: 12/01/16 09:55 Dose: 20 mg - Objective Vital Signs: Vital Signs Temperature 98.2 F 12/02/16 07:15 Pulse Rate 73 12/02/16 07:15 Respiratory Rate 20 12/02/16 07:15 Blood Pressure 112/73 12/02/16 07:15 O2 Sat by Pulse Oximetry (%) 98 12/01/16 21:00 Constitutional: Yes: No Distress Eyes: Yes: Conjunctiva Clear Cardiovascular: Yes: Regular Rate and Rhythm, S1, S2 Respiratory: Yes: CTA Bilaterally Gastrointestinal: Yes: Normal Bowel Sounds, Soft. No: Tenderness Genitourinary: No: CVA Tenderness - Left, CVA Tenderness - Right Edema: No Labs: CBC, BMP 12/02/16 07:00 12/02/16 07:00 INR, PTT INR 1.53 (0.82-1.09) H D 11/30/16 17:02 Assessment/Plan Gram Negative bacteremia/ sepsis UTI/ Sepsis secondary to UTI Probable pyelonephritis Nephrolithiasis Thrombocytopenia secondary to sepsis- stable PCN allergy Blood, Urine c/s NLF Continue meropenem pending final c/s
--- NOTE | 2016-12-02 12:14 | PN ---
Progress Note, Physician Chief Complaint: Ms Bustillos complains of having a rough night secondary to fevers. Denies cp, sob, n/v. Still with general malaise. - Current Medication List Current Medications: Active Medications Acetaminophen (Tylenol -) 650 mg PO Q4H PRN PRN Reason: FEVER OR PAIN Last Admin: 12/02/16 01:47 Dose: 650 mg Amlodipine Besylate (Norvasc -) 2.5 mg PO DAILY [facility] Last Admin: 12/02/16 11:36 Dose: 2.5 mg Enoxaparin Sodium (Lovenox -) 40 mg SQ DAILY [facility] Last Admin: 12/02/16 11:35 Dose: 40 mg Hydrochlorothiazide (Hctz -) 12.5 mg PO DAILY [facility] Last Admin: 12/02/16 11:38 Dose: 12.5 mg Meropenem 500 mg/ Dextrose 100 mls @ 200 mls/hr IVPB Q8H [facility] Pantoprazole Sodium (Protonix -) 20 mg PO DAILY [facility] Last Admin: 12/02/16 11:36 Dose: 20 mg - Objective Vital Signs: Vital Signs Temperature 100.1 F H 12/02/16 10:00 Pulse Rate 90 12/02/16 10:00 Respiratory Rate 18 12/02/16 10:00 Blood Pressure 114/62 12/02/16 10:00 O2 Sat by Pulse Oximetry (%) 98 12/01/16 21:00 Constitutional: Yes: Well Nourished, No Distress, Calm Cardiovascular: Yes: Regular Rate and Rhythm. No: Gallop, Murmur, Rub Respiratory: Yes: Regular, CTA Bilaterally. No: Rales, Rhonchi, Wheezes Gastrointestinal: Yes: Normal Bowel Sounds, Soft. No: Distention, Tenderness Extremities: Yes: WNL Edema: No Labs: CBC, BMP 12/02/16 07:00 12/02/16 07:00 INR, PTT INR 1.53 (0.82-1.09) H D 11/30/16 17:02 Problem List - Problems (1) UTI (urinary tract infection) Code(s): N39.0 - URINARY TRACT INFECTION, SITE NOT SPECIFIED Qualifiers: Urinary tract infection type: acute cystitis Hematuria presence: without hematuria Qualified Code(s): N30.00 - Acute cystitis without hematuria (2) Sepsis Code(s): A41.9 - SEPSIS, UNSPECIFIED ORGANISM (3) HTN (hypertension) Code(s): I10 - ESSENTIAL (PRIMARY) HYPERTENSION Assessment/Plan (1) UTI (urinary tract infection) Assessment/Plan: -appreciate ID assistance -growing non-lactose fermenting gram negative bacilli -continue empiric merrem Code(s): N39.0 - URINARY TRACT INFECTION, SITE NOT SPECIFIED Qualifiers: Urinary tract infection type: acute cystitis Hematuria presence: without hematuria Qualified Code(s): N30.00 - Acute cystitis without hematuria (2) Sepsis Assessment/Plan: -improving, but patient still symptomatic -await final culture results -still febrile, but leukocytosis resolved -continue merrem currently Code(s): A41.9 - SEPSIS, UNSPECIFIED ORGANISM (3) HTN (hypertension) Assessment/Plan: -continue HCTZ and norvasc -monitor Code(s): I10 - ESSENTIAL (PRIMARY) HYPERTENSION
[2016-12-02] MEDS ORDERED: PT OWN MED DRAWER 7, Y5N ONE (16:04)
[2016-12-03] MEDS: MEROPENEM 500 MG in DEXTROSE 5%-WATER - 100 ML IVPB SCH ×2 (01:58→09:23)
[2016-12-03] MEDS: ACETAMINOPHEN 325 MG TABLET (FP) PO PRN (02:24)
[2016-12-03 08:29] LABS: BASOPHIL 0.6 % (0-2.0); EOSINOPHIL 1.9 % (0-4.5); MCH 32.5 pg (25.7-33.7); MEAN CELL VOLUME 95.5 fl (80-96); MEAN PLT VOLUME 8.5 fl (7.5-11.1); PLATELET COUNT 150 K/MM3 (134-434); RDW 14.7 % (11.6-15.6); WHITE BLOOD COUNT 9.5 K/mm3 (4.0-10.0)
[2016-12-03 09:04] LABS: ANION GAP 10 (8-16); CALCIUM 8.3 mg/dL (8.5-10.1); CO2 28 mmol/L (21-32); GLUCOSE,RANDOM 96 mg/dL (74-106); MAGNESIUM 2.3 mg/dL (1.8-2.4); PHOSPHOROUS 3.1 mg/dL (2.5-4.9)
[2016-12-03] MEDS ORDERED: PT OWN MED DRAWER 7, Y5N ONE ×2 (09:20→21:33)
[2016-12-03] MEDS: PANTOPRAZOLE 20 MG TABLET (FP) PO SCH (09:23)
[2016-12-03] MEDS: ENOXAPARIN NA (PORCINE) 40 MG/0.4 ML DISP.SYRIN SQ SCH (09:23)
[2016-12-03] MEDS: amLODIPine BESYLATE 2.5 MG TABLET (FP) PO SCH (09:23)
[2016-12-03] MEDS: HYDROCHLOROTHIAZIDE 12.5 MG CAPSULE (FP) PO SCH (09:23)
[2016-12-03] MEDS ORDERED: POTASSIUM CHLORIDE TABS 20 MEQ TABLET.ER (FP) PO ONE (11:00)
--- NOTE | 2016-12-03 11:13 | PN ---
Progress Note, Physician Chief Complaint: Ms Bustillos says she is feeling better but still with general malaise and fevers. Last recorded fever in vital signs was 3pm yesterday, patient says she is still running a fever and has night sweats. - Current Medication List Current Medications: Active Medications Acetaminophen (Tylenol -) 650 mg PO Q4H PRN PRN Reason: FEVER OR PAIN Last Admin: 12/03/16 02:24 Dose: 650 mg Amlodipine Besylate (Norvasc -) 2.5 mg PO DAILY [facility] Last Admin: 12/03/16 09:23 Dose: 2.5 mg Enoxaparin Sodium (Lovenox -) 40 mg SQ DAILY [facility] Last Admin: 12/03/16 09:23 Dose: 40 mg Hydrochlorothiazide (Hctz -) 12.5 mg PO DAILY [facility] Last Admin: 12/03/16 09:23 Dose: 12.5 mg Meropenem 500 mg/ Dextrose 100 mls @ 200 mls/hr IVPB Q8H [facility] Last Admin: 12/03/16 09:23 Dose: 200 mls/hr Pantoprazole Sodium (Protonix -) 20 mg PO DAILY [facility] Last Admin: 12/03/16 09:23 Dose: 20 mg - Objective Vital Signs: Vital Signs Temperature 98.1 F 12/03/16 08:40 Pulse Rate 79 12/03/16 08:40 Respiratory Rate 18 12/03/16 08:40 Blood Pressure 106/63 12/03/16 08:40 O2 Sat by Pulse Oximetry (%) 95 12/03/16 09:00 Constitutional: Yes: Well Nourished, No Distress, Calm Cardiovascular: Yes: Regular Rate and Rhythm. No: Gallop, Murmur, Rub Respiratory: Yes: Regular, CTA Bilaterally. No: Rales, Rhonchi, Wheezes Gastrointestinal: Yes: Normal Bowel Sounds, Soft. No: Distention, Tenderness Extremities: Yes: WNL Edema: No Labs: CBC, BMP 12/03/16 06:30 12/03/16 06:30 INR, PTT INR 1.53 (0.82-1.09) H D 11/30/16 17:02 Problem List - Problems (1) UTI (urinary tract infection) Code(s): N39.0 - URINARY TRACT INFECTION, SITE NOT SPECIFIED Qualifiers: Urinary tract infection type: acute cystitis Hematuria presence: without hematuria Qualified Code(s): N30.00 - Acute cystitis without hematuria (2) Sepsis Code(s): A41.9 - SEPSIS, UNSPECIFIED ORGANISM (3) HTN (hypertension) Code(s): I10 - ESSENTIAL (PRIMARY) HYPERTENSION Assessment/Plan (1) UTI (urinary tract infection) Assessment/Plan: -growing MDR e. coli -source of sepsis -sensitive to merrem, continue per ID -defer change of antibiotics to ID Code(s): N39.0 - URINARY TRACT INFECTION, SITE NOT SPECIFIED Qualifiers: Urinary tract infection type: acute cystitis Hematuria presence: without hematuria Qualified Code(s): N30.00 - Acute cystitis without hematuria (2) Sepsis Assessment/Plan: -final cultures resulted, as above -continue merrem per ID Code(s): A41.9 - SEPSIS, UNSPECIFIED ORGANISM (3) HTN (hypertension) Assessment/Plan: -continue HCTZ and norvasc -monitor Code(s): I10 - ESSENTIAL (PRIMARY) HYPERTENSION (4) Hypokalemia -replace
--- NOTE | 2016-12-03 17:09 | PN ---
Progress Note, Physician History of Present Illness: OOB in chair Reports less urinary frequency/ urgency No suprapubic/ flank pain Temps low grade WBC improved Blood, urine c/s E coli (s) cefazolin - Current Medication List Current Medications: Active Medications Acetaminophen (Tylenol -) 650 mg PO Q4H PRN PRN Reason: FEVER OR PAIN Last Admin: 12/03/16 02:24 Dose: 650 mg Amlodipine Besylate (Norvasc -) 2.5 mg PO DAILY [facility] Last Admin: 12/03/16 09:23 Dose: 2.5 mg Enoxaparin Sodium (Lovenox -) 40 mg SQ DAILY [facility] Last Admin: 12/03/16 09:23 Dose: 40 mg Hydrochlorothiazide (Hctz -) 12.5 mg PO DAILY [facility] Last Admin: 12/03/16 09:23 Dose: 12.5 mg Cefazolin Sodium/Dextrose (Ancef 2 Gm Premixed Ivpb -) 50 mls @ 100 mls/hr IVPB Q8H-IV [facility] Pantoprazole Sodium (Protonix -) 20 mg PO DAILY [facility] Last Admin: 12/03/16 09:23 Dose: 20 mg - Objective Vital Signs: Vital Signs Temperature 99.0 F 12/03/16 15:35 Pulse Rate 76 12/03/16 15:35 Respiratory Rate 18 12/03/16 15:35 Blood Pressure 106/63 12/03/16 08:40 O2 Sat by Pulse Oximetry (%) 95 12/03/16 09:00 Constitutional: Yes: No Distress Cardiovascular: Yes: Regular Rate and Rhythm, S1, S2 Respiratory: Yes: CTA Bilaterally Gastrointestinal: Yes: Normal Bowel Sounds, Soft, Abdomen, Obese Edema: No Labs: CBC, BMP 12/03/16 06:30 12/03/16 06:30 INR, PTT INR 1.53 (0.82-1.09) H D 11/30/16 17:02 Assessment/Plan Gram Negative bacteremia/ sepsis E coli UTI/ Sepsis secondary to UTI Probable pyelonephritis Nephrolithiasis Thrombocytopenia secondary to sepsis- stable PCN allergy Blood, Urine c/s E coli Discontinue meropenem Substitute cefazolin 2gm IVPB q8h
[2016-12-03] MEDS: CEFAZOLIN 2 GM/D5W 50 ML IVPB SCH (17:20)
[2016-12-04] MEDS: CEFAZOLIN 2 GM/D5W 50 ML IVPB SCH ×3 (01:42→17:08)
[2016-12-04 08:02] LABS: MCH 32.5 pg (25.7-33.7); MCHC 33.9 g/dl (32.0-36.0); MEAN CELL VOLUME 95.8 fl (80-96); MEAN PLT VOLUME 7.6 fl (7.5-11.1); PLATELET COUNT 192 K/MM3 (134-434); RDW 14.7 % (11.6-15.6); WHITE BLOOD COUNT 8.7 K/mm3 (4.0-10.0)
[2016-12-04 08:44] LABS: ANION GAP 9 (8-16); CALCIUM 8.7 mg/dL (8.5-10.1); CO2 27 mmol/L (21-32); GLUCOSE,RANDOM 87 mg/dL (74-106); MAGNESIUM 2.3 mg/dL (1.8-2.4); PHOSPHOROUS 3.6 mg/dL (2.5-4.9)
[2016-12-04] MEDS: amLODIPine BESYLATE 2.5 MG TABLET (FP) PO SCH (09:24)
[2016-12-04] MEDS: PANTOPRAZOLE 20 MG TABLET (FP) PO SCH (09:24)
[2016-12-04] MEDS: HYDROCHLOROTHIAZIDE 12.5 MG CAPSULE (FP) PO SCH (09:24)
[2016-12-04] MEDS: ENOXAPARIN NA (PORCINE) 40 MG/0.4 ML DISP.SYRIN SQ SCH (09:24)
[2016-12-04 11:28] LABS: METAMYELOCYTE 1 % (0-2); PLATELET ESTIMATE ADEQUATE (NORMAL)
--- NOTE | 2016-12-04 11:37 | PN ---
Progress Note (short form) - Note Progress Note: fever curve decreasing no dysuria, no flank pain WBC now normal switched to ancef abx management as per ID Problem List - Problems (1) UTI (urinary tract infection) Code(s): N39.0 - URINARY TRACT INFECTION, SITE NOT SPECIFIED Qualifiers: Urinary tract infection type: acute cystitis Hematuria presence: without hematuria Qualified Code(s): N30.00 - Acute cystitis without hematuria
--- NOTE | 2016-12-04 13:15 | PN ---
Progress Note, Physician History of Present Illness: Doing better No complaints No dysuria/ hematuria No c/o suprapubic or flank pain - Current Medication List Current Medications: Active Medications Acetaminophen (Tylenol -) 650 mg PO Q4H PRN PRN Reason: FEVER OR PAIN Last Admin: 12/03/16 02:24 Dose: 650 mg Amlodipine Besylate (Norvasc -) 2.5 mg PO DAILY [facility] Last Admin: 12/04/16 09:24 Dose: 2.5 mg Enoxaparin Sodium (Lovenox -) 40 mg SQ DAILY [facility] Last Admin: 12/04/16 09:24 Dose: 40 mg Hydrochlorothiazide (Hctz -) 12.5 mg PO DAILY [facility] Last Admin: 12/04/16 09:24 Dose: 12.5 mg Cefazolin Sodium/Dextrose (Ancef 2 Gm Premixed Ivpb -) 50 mls @ 100 mls/hr IVPB Q8H-IV [facility] Last Admin: 12/04/16 09:24 Dose: 100 mls/hr Pantoprazole Sodium (Protonix -) 20 mg PO DAILY [facility] Last Admin: 12/04/16 09:24 Dose: 20 mg - Objective Vital Signs: Vital Signs Temperature 98.1 F 12/04/16 08:37 Pulse Rate 84 12/04/16 08:37 Respiratory Rate 18 12/04/16 08:37 Blood Pressure 115/75 12/04/16 08:37 O2 Sat by Pulse Oximetry (%) 99 12/04/16 09:00 Constitutional: Yes: No Distress Eyes: Yes: Conjunctiva Clear Cardiovascular: Yes: Regular Rate and Rhythm, S1, S2 Respiratory: Yes: CTA Bilaterally Gastrointestinal: Yes: Normal Bowel Sounds, Soft. No: Tenderness Genitourinary: No: CVA Tenderness - Left, CVA Tenderness - Right Edema: No Labs: CBC, BMP 12/04/16 06:30 12/04/16 06:30 INR, PTT INR 1.53 (0.82-1.09) H D 11/30/16 17:02 Assessment/Plan Gram Negative bacteremia/ sepsis E coli UTI/ Sepsis secondary to UTI Probable pyelonephritis Nephrolithiasis Thrombocytopenia secondary to sepsis- resolved PCN allergy Continue cefazolin 2gm IVPB q8h PICC for outpatient antibiotic therapy- Ertapenem 1gm IVPB q24h x 10d
[2016-12-04] MEDS ORDERED: PICC LINE 8 ML FLUSH PROTOCOL IVPUSH PRN (16:57)
--- NOTE | 2016-12-04 17:10 | PN ---
Progress Note, Physician Chief Complaint: Ms Bustillos says she is feeling good today. No further fevers, no cp, sob, n/v. - Current Medication List Current Medications: Active Medications Acetaminophen (Tylenol -) 650 mg PO Q4H PRN PRN Reason: FEVER OR PAIN Last Admin: 12/03/16 02:24 Dose: 650 mg Amlodipine Besylate (Norvasc -) 2.5 mg PO DAILY [facility] Last Admin: 12/04/16 09:24 Dose: 2.5 mg Enoxaparin Sodium (Lovenox -) 40 mg SQ DAILY [facility] Last Admin: 12/04/16 09:24 Dose: 40 mg Hydrochlorothiazide (Hctz -) 12.5 mg PO DAILY [facility] Last Admin: 12/04/16 09:24 Dose: 12.5 mg IV Flush (Picc Line Flush) 8 ml IVPUSH PRN PRN PRN Reason: Protocol Cefazolin Sodium/Dextrose (Ancef 2 Gm Premixed Ivpb -) 50 mls @ 100 mls/hr IVPB Q8H-IV [facility] Last Admin: 12/04/16 09:24 Dose: 100 mls/hr Pantoprazole Sodium (Protonix -) 20 mg PO DAILY [facility] Last Admin: 12/04/16 09:24 Dose: 20 mg - Objective Vital Signs: Vital Signs Temperature 98.8 F 12/04/16 15:22 Pulse Rate 78 12/04/16 15:22 Respiratory Rate 18 12/04/16 15:22 Blood Pressure 102/59 12/04/16 15:22 O2 Sat by Pulse Oximetry (%) 99 12/04/16 09:00 Constitutional: Yes: Well Nourished, No Distress, Calm Cardiovascular: Yes: Regular Rate and Rhythm. No: Gallop, Murmur, Rub Respiratory: Yes: Regular, CTA Bilaterally. No: Rales, Rhonchi, Wheezes Gastrointestinal: Yes: Normal Bowel Sounds, Soft. No: Distention, Tenderness Extremities: Yes: WNL Edema: No Labs: CBC, BMP 12/04/16 06:30 12/04/16 06:30 INR, PTT INR 1.53 (0.82-1.09) H D 11/30/16 17:02 Problem List - Problems (1) UTI (urinary tract infection) Code(s): N39.0 - URINARY TRACT INFECTION, SITE NOT SPECIFIED Qualifiers: Urinary tract infection type: acute cystitis Hematuria presence: without hematuria Qualified Code(s): N30.00 - Acute cystitis without hematuria (2) Sepsis Code(s): A41.9 - SEPSIS, UNSPECIFIED ORGANISM (3) HTN (hypertension) Code(s): I10 - ESSENTIAL (PRIMARY) HYPERTENSION Assessment/Plan (1) UTI (urinary tract infection) Assessment/Plan: -growing MDR e. coli -source of sepsis -on cefazolin currently -plan for discharge home with ertapenem -will return to the hospital for daily infusion as an outpatient -PICC line placement tomorrow Code(s): N39.0 - URINARY TRACT INFECTION, SITE NOT SPECIFIED Qualifiers: Urinary tract infection type: acute cystitis Hematuria presence: without hematuria Qualified Code(s): N30.00 - Acute cystitis without hematuria (2) Sepsis Assessment/Plan: -final cultures resulted, as above -resolved Code(s): A41.9 - SEPSIS, UNSPECIFIED ORGANISM (3) HTN (hypertension) Assessment/Plan: -continue HCTZ and norvasc -monitor Code(s): I10 - ESSENTIAL (PRIMARY) HYPERTENSION (4) Hypokalemia -replaced
[2016-12-05] MEDS: CEFAZOLIN 2 GM/D5W 50 ML IVPB SCH ×2 (01:16→12:06)
[2016-12-05 06:35] VITALS: BP 110/65; PULSE 67; TEMP 98.5
[2016-12-05 08:31] LABS: MCH 32.1 pg (25.7-33.7); MCHC 33.3 g/dl (32.0-36.0); MEAN CELL VOLUME 96.4 fl (80-96); MEAN PLT VOLUME 7.5 fl (7.5-11.1); PLATELET COUNT 235 K/MM3 (134-434); RDW 14.6 % (11.6-15.6); WHITE BLOOD COUNT 7.9 K/mm3 (4.0-10.0)
[2016-12-05 08:58] LABS: ANION GAP 11 (8-16); CALCIUM 8.7 mg/dL (8.5-10.1); CO2 28 mmol/L (21-32); GLUCOSE,RANDOM 89 mg/dL (74-106); MAGNESIUM 2.3 mg/dL (1.8-2.4); PHOSPHOROUS 3.3 mg/dL (2.5-4.9)
--- NOTE | 2016-12-05 11:34 | DS ---
Physical Examination Vital Signs: Vital Signs Temperature 98.5 F 12/05/16 06:34 Pulse Rate 67 12/05/16 06:34 Respiratory Rate 18 12/05/16 06:34 Blood Pressure 110/65 12/05/16 06:34 O2 Sat by Pulse Oximetry (%) 99 12/04/16 21:00 Constitutional: Yes: Well Nourished, No Distress, Calm Cardiovascular: Yes: Regular Rate and Rhythm. No: Gallop, Murmur, Rub Respiratory: Yes: Regular, CTA Bilaterally. No: Rales, Rhonchi, Wheezes Gastrointestinal: Yes: Normal Bowel Sounds, Soft. No: Distention, Tenderness Extremities: Yes: WNL Edema: No Labs: CBC, BMP 12/05/16 06:00 12/05/16 06:00 Discharge Summary Reason For Visit: UTI, DIVERTICULITIS OF INTESTINE Current Active Problems HTN (hypertension) (Acute) Sepsis (Acute) UTI (urinary tract infection) (Acute) Hospital Course: (1) UTI (urinary tract infection) Code(s): N39.0 - URINARY TRACT INFECTION, SITE NOT SPECIFIED Qualifiers: Urinary tract infection type: acute cystitis Hematuria presence: without hematuria Qualified Code(s): N30.00 - Acute cystitis without hematuria (2) Sepsis Code(s): A41.9 - SEPSIS, UNSPECIFIED ORGANISM (3) HTN (hypertension)r Code(s): I10 - ESSENTIAL (PRIMARY) HYPERTENSION (4) Hypokalemia Ms Bustillos is a very pleasant 76 year old female who came in with sepsis secondary to a UTI. She was admitted to the hospital and seen by both urology ( recent stent removal) and ID (for concern for MDR bacterial infection). She was stared on merrem empirically and her urine and blood cultures resulted in a MDR e. coli. She was transitioned to cefazolin and improved significantly. She will need a long course of antibiotics and this can be done as an outpatient. She had a PICC line placed and will receive IV ertapenem for 10 more days. She is safe for discharge home. 34 minutes spent in preparation of this discharge Condition: Good - Instructions Diet, Activity, Other Instructions: resume previous diet and activity Referrals: Mike Watt MD [Staff Physician] - Glenn Vela MD [Staff Physician] - Jean Good MD [Primary Care Provider] - Disposition: HOME - Home Medications Comprehensive Discharge Medication List: Ambulatory Orders Albuterol Sulfate [Proair Hfa -] 1 - 2 inh PO PRN PRN 01/20/14 Amlodipine Besylate [Norvasc -] 2.5 mg PO DAILY 01/20/14 Hydrochlorothiazide [Hctz -] 12.5 mg PO DAILY 01/20/14 Omeprazole [Prilosec] 20 mg PO PRN PRN 01/20/14 Vitamin B Complex 1 each PO DAILY 09/03/16 Acetaminophen [Tylenol .Extra-Strength -] 1,000 mg PO Q6H 11/05/16 Cholecalciferol (Vitamin D3) [Vitamin D3] 50,000 unit PO WEEKLY 11/05/16 Ertapenem Sodium - 1 Gram [Invanz (Pre-Docked)] 1 gm IVPB DAILY 10 Days
[2016-12-05] MEDS: PANTOPRAZOLE 20 MG TABLET (FP) PO SCH (12:06)
[2016-12-05] MEDS: amLODIPine BESYLATE 2.5 MG TABLET (FP) PO SCH (12:06)
[2016-12-05] MEDS: HYDROCHLOROTHIAZIDE 12.5 MG CAPSULE (FP) PO SCH (12:06)
[2016-12-05] MEDS: ENOXAPARIN NA (PORCINE) 40 MG/0.4 ML DISP.SYRIN SQ SCH (12:06)
[2016-12-05 12:41] LABS: PLATELET ESTIMATE ADEQUATE (NORMAL)
== END 2016-12-05 14:45 | disposition home or self-care (01) | DRG 872 ==
LOC: JER 16:32 → JERBED 19:45 → J8W 22:29
PROVIDERS: ADMIT Specialist; ATTEND Specialist
PROC: 02HV33Z Insertion of Infusion Device into Superior Vena Cava, Percutaneous Approach (ICD-10-PCS; principal; 2016-12-05)
DX: A41.51 Sepsis due to Escherichia coli [E. coli] (principal); N39.0 Urinary tract infection, site not specified; K21.9 Gastro-esophageal reflux disease without esophagitis; N20.0 Calculus of kidney; H40.89 Other specified glaucoma; J45.909 Unspecified asthma, uncomplicated; K29.60 Other gastritis without bleeding; K44.9 Diaphragmatic hernia without obstruction or gangrene; K22.2 Esophageal obstruction; D69.6 Thrombocytopenia, unspecified; E87.6 Hypokalemia; Z88.0 Allergy status to penicillin; Z87.891 Personal history of nicotine dependence
CPT/HCPCS: 36415; 36569; 71010-TC; 74176-TC; 77001-TC; 80048; 80053; 81003; 81015; 82803; 83605; 83735; 84100; 84484; 85025; 85610; 85730; 86850; 86900; 86901; 87040; 87086; 87186; 93005; 93010; 99285-25; C1751

== ENCOUNTER 2016-12-06 10:01 | Day surgery (SDC) | payer OTHER, BC ==
[2016-12-06] MEDS ORDERED: ERTAPENEM SODIUM 1 GM in SODIUM CHLORIDE 50 ML IVPB ONE (11:30)
[2016-12-06 12:06] VITALS: BP 116/66; PULSE 76
[2016-12-06 12:07] VITALS: TEMP 98.7
== END 2016-12-06 13:06 | disposition home or self-care (01) ==
LOC: JINFUSION 10:01 → J7W 10:02 → JINFUSION 13:06
PROVIDERS: ATTEND Specialist
DX: N39.0 Urinary tract infection, site not specified (principal)
CPT/HCPCS: 96365

== ENCOUNTER 2016-12-07 10:05 | Day surgery (SDC) | payer OTHER, BC ==
[2016-12-07 10:47] VITALS: TEMP 98.4
[2016-12-07] MEDS ORDERED: ERTAPENEM SODIUM 1 GM in SODIUM CHLORIDE 50 ML IVPB ONE (11:30)
[2016-12-07 13:22] VITALS: BP 117/72; PULSE 73
== END 2016-12-07 13:37 | disposition home or self-care (01) ==
LOC: JINFUSION 10:05 → J7W 10:06 → JINFUSION 13:37
PROVIDERS: ATTEND Specialist
DX: N39.0 Urinary tract infection, site not specified (principal)
CPT/HCPCS: 96365

== ENCOUNTER 2016-12-08 09:22 | Day surgery (SDC) | payer OTHER, BC ==
[2016-12-08 09:42] LABS: MCHC 32.8 g/dl (32.0-36.0); MEAN CELL VOLUME 97.5 fl (80-96); MEAN PLT VOLUME 6.8 fl (7.5-11.1); PLATELET COUNT 327 K/MM3 (134-434); RDW 14.6 % (11.6-15.6); WHITE BLOOD COUNT 11.4 K/mm3 (4.0-10.0)
[2016-12-08] MEDS ORDERED: ERTAPENEM SODIUM 1 GM VIAL ONE (10:03)
[2016-12-08 10:06] LABS: ANION GAP 6 (8-16); CALCIUM 9.2 mg/dL (8.5-10.1); CO2 29 mmol/L (21-32); CREATININE 0.9 mg/dL (0.55-1.02); GLUCOSE,RANDOM 79 mg/dL (74-106)
[2016-12-08 11:20] VITALS: BP 137/73; PULSE 76; TEMP 98.1
== END 2016-12-08 11:40 | disposition home or self-care (01) ==
LOC: JINFUSION 09:22 → JASU-ENDO 09:22 → JINFUSION 11:40
PROVIDERS: ATTEND Specialist
DX: N39.0 Urinary tract infection, site not specified (principal)
CPT/HCPCS: 36415; 80048; 85027; 96365

== ENCOUNTER 2016-12-09 10:20 | Day surgery (SDC) | payer OTHER, BC ==
[2016-12-09] MEDS ORDERED: ERTAPENEM SODIUM 1 GM VIAL ONE (10:55)
[2016-12-09 13:10] VITALS: BP 125/71; PULSE 74
== END 2016-12-09 11:30 | disposition home or self-care (01) ==
LOC: JINFUSION 10:20
PROVIDERS: ATTEND Specialist
DX: N39.0 Urinary tract infection, site not specified (principal)
CPT/HCPCS: 96365

== ENCOUNTER 2016-12-10 10:00 | Day surgery (SDC) | payer OTHER, BC ==
[2016-12-10] MEDS ORDERED: ERTAPENEM SODIUM 1 GM VIAL ONE (10:30)
[2016-12-10] MEDS ORDERED: ERTAPENEM SODIUM 1 GM/50 ML PRE-DOCKED IVPB ONE (10:45)
[2016-12-10 11:45] VITALS: BP 132/79; PULSE 70; TEMP 98.8
== END 2016-12-10 11:47 | disposition home or self-care (01) ==
LOC: JINFUSION 10:00
PROVIDERS: ATTEND Specialist
DX: N39.0 Urinary tract infection, site not specified (principal)
CPT/HCPCS: 96365

== ENCOUNTER 2016-12-11 10:20 | Day surgery (SDC) | payer OTHER, BC ==
[2016-12-11] MEDS ORDERED: ERTAPENEM SODIUM 1 GM VIAL ONE (10:43)
[2016-12-11 12:02] VITALS: BP 107/69; PULSE 75; TEMP 98.8
[2016-12-11] MEDS ORDERED: ERTAPENEM SODIUM 1 GM/50 ML PRE-DOCKED IVPB ONE (13:00)
== END 2016-12-11 12:02 | disposition home or self-care (01) ==
LOC: JINFUSION 10:20
PROVIDERS: ATTEND Specialist
DX: N39.0 Urinary tract infection, site not specified (principal)
CPT/HCPCS: 96365

== ENCOUNTER 2016-12-12 10:28 | Day surgery (SDC) | payer OTHER, BC ==
[2016-12-12] MEDS ORDERED: ERTAPENEM SODIUM 1 GM VIAL ONE (10:38)
[2016-12-12 12:31] VITALS: BP 110/69; PULSE 75; TEMP 98.7
== END 2016-12-12 11:58 | disposition home or self-care (01) ==
LOC: JINFUSION 10:28
PROVIDERS: ATTEND Specialist
DX: N39.0 Urinary tract infection, site not specified (principal)
CPT/HCPCS: 96365

== ENCOUNTER 2016-12-13 11:02 | Day surgery (SDC) | payer OTHER, BC ==
[2016-12-13] MEDS ORDERED: ERTAPENEM SODIUM 1 GM in SODIUM CHLORIDE 50 ML IVPB ONE (11:30)
[2016-12-13 13:24] VITALS: BP 106/69; PULSE 69; TEMP 98.2
== END 2016-12-13 14:38 | disposition home or self-care (01) ==
LOC: JINFUSION 11:02 → J7W 11:03 → JINFUSION 14:38
PROVIDERS: ATTEND Specialist
DX: N39.0 Urinary tract infection, site not specified (principal)
CPT/HCPCS: 96365

== ENCOUNTER 2016-12-14 10:19 | Day surgery (SDC) | payer OTHER, BC ==
[2016-12-14] MEDS ORDERED: ERTAPENEM SODIUM 1 GM in SODIUM CHLORIDE 50 ML IVPB ONE (11:00)
[2016-12-14 16:32] VITALS: BP 129/76; PULSE 73; TEMP 98.5
== END 2016-12-14 14:47 | disposition home or self-care (01) ==
LOC: JINFUSION 10:19 → J7W 10:20 → JINFUSION 14:47
PROVIDERS: ATTEND Specialist
DX: N39.0 Urinary tract infection, site not specified (principal)
CPT/HCPCS: 96365

== ENCOUNTER 2016-12-15 10:09 | Day surgery (SDC) | payer OTHER, BC ==
[2016-12-15 10:43] LABS: MCH 32.7 pg (25.7-33.7); MCHC 33.7 g/dl (32.0-36.0); MEAN CELL VOLUME 96.9 fl (80-96); MEAN PLT VOLUME 7.3 fl (7.5-11.1); PLATELET COUNT 259 K/MM3 (134-434); RDW 14.4 % (11.6-15.6); WHITE BLOOD COUNT 6.2 K/mm3 (4.0-10.0)
[2016-12-15] MEDS ORDERED: ERTAPENEM SODIUM 1 GM VIAL ONE (10:50)
[2016-12-15 11:13] LABS: ANION GAP 7 (8-16); CALCIUM 9.2 mg/dL (8.5-10.1); CO2 27 mmol/L (21-32); CREATININE 0.9 mg/dL (0.55-1.02); GLUCOSE,RANDOM 75 mg/dL (74-106)
[2016-12-15 11:53] VITALS: BP 112/68; PULSE 64; TEMP 98.1
== END 2016-12-15 11:40 | disposition home or self-care (01) ==
LOC: JINFUSION 10:09
PROVIDERS: ATTEND Specialist
DX: N39.0 Urinary tract infection, site not specified (principal)
CPT/HCPCS: 36415; 80048; 85027; 96365

== ENCOUNTER 2020-04-09 11:51 | Emergency (ER) | payer OTHER, BC | END 2020-04-09 15:02 | disposition home or self-care (01) | LOC: JVIRT 11:51 | DX: Z11.59 Encounter for screening for other viral diseases (principal) | CPT/HCPCS: 87804; C9803; G2012-GT; Q3014-GT; U0003 ==

== ENCOUNTER 2021-03-08 04:49 | Day surgery (SDC) | payer OTHER, BC ==
[2021-03-06 15:09] VITALS: BMI 26.7
[2021-03-08] MEDS ORDERED: MIDAZOLAM HCL 2 MG/2 ML SINGLE DOSE VIAL ONE (08:46)
[2021-03-08 09:52] VITALS: TEMP 97.1
[2021-03-08 10:37] VITALS: BP 118/76; PULSE 55
== END 2021-03-08 10:55 | disposition home or self-care (01) ==
LOC: JASU-ENDO 04:49
PROVIDERS: ATTEND Internal Medicine Gastroenterology
PROC: 0DBL8ZX Excision of Transverse Colon, Via Natural or Artificial Opening Endoscopic, Diagnostic (ICD-10-PCS; 2021-03-08)
PROC: 0DBM8ZX Excision of Descending Colon, Via Natural or Artificial Opening Endoscopic, Diagnostic (ICD-10-PCS; 2021-03-08)
PROC: 0DBP8ZX Excision of Rectum, Via Natural or Artificial Opening Endoscopic, Diagnostic (ICD-10-PCS; 2021-03-08)
PROC: 0DB98ZX Excision of Duodenum, Via Natural or Artificial Opening Endoscopic, Diagnostic (ICD-10-PCS; 2021-03-08)
PROC: 0DB68ZX Excision of Stomach, Via Natural or Artificial Opening Endoscopic, Diagnostic (ICD-10-PCS; 2021-03-08)
PROC: 0DB28ZX Excision of Middle Esophagus, Via Natural or Artificial Opening Endoscopic, Diagnostic (ICD-10-PCS; 2021-03-08)
PROC: 0D758ZZ Dilation of Esophagus, Via Natural or Artificial Opening Endoscopic (ICD-10-PCS; 2021-03-08)
PROC: 0DBK8ZX Excision of Ascending Colon, Via Natural or Artificial Opening Endoscopic, Diagnostic (ICD-10-PCS; principal; 2021-03-08 09:00)
DX: Z12.11 Encounter for screening for malignant neoplasm of colon (principal); D12.2 Benign neoplasm of ascending colon; D12.4 Benign neoplasm of descending colon; D12.3 Benign neoplasm of transverse colon; K62.1 Rectal polyp; K64.8 Other hemorrhoids; K57.30 Diverticulosis of large intestine without perforation or abscess without bleeding; R13.10 Dysphagia, unspecified; K44.9 Diaphragmatic hernia without obstruction or gangrene; K22.2 Esophageal obstruction; K29.00 Acute gastritis without bleeding; K21.00 Gastro-esophageal reflux disease with esophagitis, without bleeding
CPT/HCPCS: 88305-TC; 88342-TC

== ENCOUNTER 2021-03-08 11:26 | Emergency (ER) | payer OTHER, BC ==
[2021-03-08 11:53] VITALS: BP 115/66; PULSE 59; TEMP 98; BMI 30.9
[2021-03-08] MEDS ORDERED: ACETAMINOPHEN 325 MG TABLET (FP) PO ONE (12:13)
[2021-03-08] MEDS ORDERED: LIDOCAINE 5% TOPICAL PATCH TP ONE (12:13)
[2021-03-08] MEDS ORDERED: LIDOCAINE 5% TOPICAL PATCH ONE (12:15)
[2021-03-08] MEDS ORDERED: ACETAMINOPHEN 325 MG TABLET (FP) ONE (12:15)
[2021-03-08] MEDS ORDERED: KETOROLAC TROMETHAMINE 30 MG/1 ML VIAL IM ONE (13:16)
[2021-03-08] MEDS ORDERED: KETOROLAC TROMETHAMINE 30 MG/1 ML VIAL ONE (13:28)
[2021-03-08] MEDS ORDERED: LIDOCAINE PATCH REMOVAL MC SCH (22:00)
== END 2021-03-08 14:26 | disposition home or self-care (01) ==
LOC: JER 11:26
DX: M25.511 Pain in right shoulder (principal)
CPT/HCPCS: 73030-TC-RT-FY; 93005; 93010; 99284-25

== ENCOUNTER 2023-10-23 13:09 | Observation (INO) | payer OTHER, BC ==
[2023-10-23] MEDS ORDERED: ACETAMINOPHEN 500 MG TABLET (FP) ONE (13:45)
[2023-10-23] MEDS: ACETAMINOPHEN 500 MG TABLET (FP) PO ONE (13:53)
[2023-10-23 17:54] LABS: HEMATOCRIT 39.6 % (32.4-45.2); HEMOGLOBIN 12.7 G/dL (10.7-15.3); MCHC 32.1 g/dl (32.0-36.0); MEAN CELL VOLUME 99.8 fl (80-96); MEAN PLT VOLUME 6.9 fl (7.5-11.1); PLATELET COUNT 169.1 10^3/uL (134-434); RBC 3.97 10^6/uL (3.60-5.2); RDW 14.5 % (11.6-15.6); WHITE BLOOD COUNT 5.6 10^3/uL (4.0-10.8)
[2023-10-23 18:01] LABS: INR 1.05 (0.83-1.09)
[2023-10-23 18:02] LABS: PLATELET ESTIMATE ADEQUATE
[2023-10-23 18:04] LABS: ACTIVATED PTT 31.2 SECONDS (25.2-36.5)
[2023-10-23 18:10] LABS: BILIRUBIN,TOTAL 0.7 mg/dl (0.2-1); CALCIUM 9.4 mg/dl (8.5-10.1); CREATININE 0.9 mg/dl (0.6-1.3); POTASSIUM 3.8 mmol/L (3.5-5.1); TOT PROT 7.3 g/dl (6.4-8.2)
[2023-10-23] MEDS ORDERED: ENOXAPARIN NA (PORCINE) 100 MG/1 ML DISP.SYRIN SQ ONE (19:11)
[2023-10-23] MEDS: ENOXAPARIN NA (PORCINE) 80 MG/0.8 ML DISP.SYRIN SQ ONE (19:20)
[2023-10-23] MEDS ORDERED: DOCUSATE SODIUM 100 MG CAPSULE (FP) PO PRN (20:46)
[2023-10-23] MEDS ORDERED: ACETAMINOPHEN 1000 MG/100 ML BAG IVPB PRN (20:51)
[2023-10-23 22:08] VITALS: BMI 27.4
[2023-10-24 01:05] VITALS: RESP 18
[2023-10-24 08:35] LABS: BASO % 0.8 % (0-2.0); EOS % 5.8 % (0-4.5); HEMATOCRIT 34.6 % (32.4-45.2); HEMOGLOBIN 11.5 GM/dL (10.7-15.3); LYMPH % 31.3 % (8-40); MCH 32.3 pg (25.7-33.7); MCHC 33.4 g/dl (32.0-36.0); MEAN CELL VOLUME 96.8 fl (80-96); MEAN PLT VOLUME 7.8 fl (7.5-11.1); MONO % 10.6 % (3.8-10.2); NEUT % 51.5 % (42.8-82.8); PLATELET COUNT 162 10^3/uL (134-434); RBC 3.57 M/mm3 (3.60-5.2); RDW 14.8 % (11.6-15.6); WHITE BLOOD COUNT 6.2 K/mm3 (4.0-10.0)
[2023-10-24 09:14] LABS: CALCIUM 9.1 mg/dl (8.5-10.1); CREATININE 0.9 mg/dl (0.6-1.3); MAGNESIUM 1.9 mg/dL (1.8-2.4); PHOSPHOROUS 3.2 (2.5-4.9)
[2023-10-24] MEDS: ENOXAPARIN NA (PORCINE) 80 MG/0.8 ML DISP.SYRIN SQ SCH (09:50)
[2023-10-24] MEDS: amLODIPine BESYLATE 2.5 MG TABLET (FP) PO SCH (09:51)
[2023-10-24] MEDS: HYDROCHLOROTHIAZIDE 12.5 MG CAPSULE (FP) PO SCH (09:51)
[2023-10-24] MEDS ORDERED: PATIENT'S OWN MEDICATION (NON-FORMULARY) (Brimonidine/Dorzolamide/Pf [Brimonidine 0.15%-Do OU SCH (10:00)
[2023-10-24] MEDS: BRIMONIDINE TARTRATE 0.15% OPHTHALMIC 5 ML BOTTLE OU SCH (10:07)
[2023-10-24] MEDS: DORZOLAMIDE 2% HCL OPHTHALMIC SOLUTION 10 ML BOTTLE OU SCH (10:17)
[2023-10-24 10:41] VITALS: PULSE 69
[2023-10-24 15:19] VITALS: BP 116/63; TEMP 98.1
[2023-10-24] MEDS: APIXABAN 5 MG TABLET PO ONE (15:22)
[2023-10-24] MEDS ORDERED: ACETAMINOPHEN 325 MG TABLET (FP) PO PRN (21:00)
[2023-10-24] MEDS ORDERED: LATANOPROST 0.005% OPHTH SOLN 2.5ML BOTTLE OU SCH (22:00)
== END 2023-10-24 16:20 | disposition home or self-care (01) ==
LOC: FER 13:09 → FM/S 18:50
PROVIDERS: ADMIT Internal Medicine
PROC: 3E023GC Introduction of Other Therapeutic Substance into Muscle, Percutaneous Approach (ICD-10-PCS; principal; 2023-10-23)
DX: I82.431 Acute embolism and thrombosis of right popliteal vein (principal); I10 Essential (primary) hypertension; E78.5 Hyperlipidemia, unspecified; I87.8 Other specified disorders of veins; R26.81 Unsteadiness on feet; H40.9 Unspecified glaucoma; Z88.0 Allergy status to penicillin; J30.2 Other seasonal allergic rhinitis
CPT/HCPCS: 36415; 73562-TC-RT-FY; 80048; 80053; 83735; 84100; 85025; 85027; 85610; 85730; 93971-TC; 96372; 99285-25; G0378